=== PATIENT | female | born 1970 | race African-American/Black ===

== ENCOUNTER 2020-04-23 15:22 | Emergency (ER) | payer SELFPAY ==
[2020-04-23] MEDS ORDERED: ACETAMINOPHEN 325 MG TAB PO ONE (15:42)
--- NOTE | 2020-04-23 15:53 | Emergency Department Report ---
- General Chief Complaint: Upper Respiratory Infection Stated Complaint: COUGH/DIZZY Time Seen by Provider: 04/23/20 15:42 Source: patient Mode of arrival: Ambulatory Limitations: No Limitations - History of Present Illness Initial Comments: Language interpretation by Trudy, patient office machines sales representative/school secretary Patient is a 50-year-old female who presents emergency room with complaints of a cough that began a week ago. She has associated headache, lightheadedness, generalized body aches, subjective fever, chills. She states that she has shortness of breath and chest discomfort after frequent coughing. She denies any nausea, vomiting, diarrhea, abdominal pain. No past medical history. No allergies medications. 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 She denies any recent travel. She is a non-smoker. - Related Data Previous Rx's Medication Instructions Recorded Last Taken Type cefUROXime [Ceftin] 250 mg PO Q12H #10 tablet 12/17/17 Unknown Rx Albuterol Sulfate [Proventil Hfa] 6.7 gm IH TID PRN #1 hfa.aer.ad 04/23/20 Unknown Rx Azithromycin [Zithromax TAB] 250 mg PO QDAY 5 Days #6 tablet 04/23/20 Unknown Rx Prednisone [predniSONE 10 mg 10 mg PO .TAPER #1 tab.ds.pk 04/23/20 Unknown Rx (6-Day Pack, 21 Tabs)] methOCARBAMOL [Robaxin TAB] 500 mg PO BID PRN #14 tab 04/23/20 Unknown Rx Allergies Allergy/AdvReac Type Severity Reaction Status Date / Time No Known Allergies Allergy Verified 04/23/20 15:24 ED Review of Systems ROS: Stated complaint: COUGH/DIZZY Other details as noted in HPI Comment: All other systems reviewed and negative ED Past Medical Hx - Past Medical History Previous Medical History?: No - Surgical History Past Surgical History?: No - Social History Smoking Status: Never Smoker Substance Use Type: None - Medications Home Medications: Home Medications Medication Instructions Recorded Confirmed Last Taken Type cefUROXime [Ceftin] 250 mg PO Q12H #10 tablet 12/17/17 Unknown Rx Albuterol Sulfate [Proventil Hfa] 6.7 gm IH TID PRN #1 hfa.aer.ad 04/23/20 Unknown Rx Azithromycin [Zithromax TAB] 250 mg PO QDAY 5 Days #6 tablet 04/23/20 Unknown Rx Prednisone [predniSONE 10 mg 10 mg PO .TAPER #1 tab.ds.pk 04/23/20 Unknown Rx (6-Day Pack, 21 Tabs)] methOCARBAMOL [Robaxin TAB] 500 mg PO BID PRN #14 tab 04/23/20 Unknown Rx ED Physical Exam - General Limitations: Language Barrier General appearance: alert, in no apparent distress - Head Head exam: Present: atraumatic, normocephalic - Eye Eye exam: Present: normal appearance - ENT ENT exam: Present: mucous membranes moist - Respiratory Respiratory exam: Present: normal lung sounds bilaterally. Absent: respiratory distress, wheezes, rales, rhonchi, stridor, chest wall tenderness, accessory muscle use, decreased breath sounds, prolonged expiratory - Cardiovascular Cardiovascular Exam: Present: regular rate, normal rhythm, normal heart sounds. Absent: systolic murmur, diastolic murmur, rubs, gallop - Neurological Exam Neurological exam: Present: alert, oriented X3 - Psychiatric Psychiatric exam: Present: normal affect, normal mood - Skin Skin exam: Present: warm, dry, intact ED Course Vital Signs 04/23/20 15:31 Temperature 99.7 F H Pulse Rate 99 H Respiratory 23 Rate Blood Pressure 121/83 O2 Sat by Pulse 95 Oximetry ED Medical Decision Making - Lab Data Result diagrams: 04/23/20 15:45 04/23/20 15:45 Lab Results 04/23/20 04/23/20 Range/Units 15:45 15:45 WBC 6.6 (4.5-11.0) K/mm3 RBC 5.10 H (3.65-5.03) M/mm3 Hgb 15.7 H (10.1-14.3) gm/dl Hct 46.4 H (30.3-42.9) % MCV 91 (79-97) fl MCH 31 (28-32) pg MCHC 34 (30-34) % RDW 13.4 (13.2-15.2) % Plt Count 227 (140-440) K/mm3 Lymph % (Auto) 20.2 (13.4-35.0) % Graves % (Auto) 8.3 H (0.0-7.3) % Eos % (Auto) 0.2 (0.0-4.3) % Baso % (Auto) 0.3 (0.0-1.8) % Lymph # (Auto) 1.3 (1.2-5.4) K/mm3 Graves # (Auto) 0.6 (0.0-0.8) K/mm3 Eos # (Auto) 0.0 (0.0-0.4) K/mm3 Baso # (Auto) 0.0 (0.0-0.1) K/mm3 Seg Neutrophils % 71.0 H (40.0-70.0) % Seg Neutrophils # 4.7 (1.8-7.7) K/mm3 Sodium 136 L (137-145) mmol/L Potassium 3.9 (3.6-5.0) mmol/L Chloride 98.7 (98-107) mmol/L Carbon Dioxide 27 (22-30) mmol/L Anion Gap 14 mmol/L BUN 16 (7-17) mg/dL Creatinine 0.9 (0.6-1.2) mg/dL Estimated GFR > 60 ml/min BUN/Creatinine Ratio 18 % Glucose 112 H (65-100) mg/dL Calcium 8.4 (8.4-10.2) mg/dL Total Bilirubin 1.00 (0.1-1.2) mg/dL AST 38 (5-40) units/L ALT 46 (7-56) units/L Alkaline Phosphatase 99 (35-129) units/L Total Protein 7.2 (6.3-8.2) g/dL Albumin 4.0 (3.9-5) g/dL Albumin/Globulin Ratio 1.3 % - Radiology Data Radiology results: report reviewed Ordering Physician: ARCHIE DODD Date of Service: 04/23/20 Procedure(s): XR chest routine 2V Accession Number(s): [id number] cc: ARCHIE DODD Fluoro Time In Minutes: CHEST 2 VIEWS INDICATION / CLINICAL INFORMATION: cough, SOB. COMPARISON: None available. FINDINGS: SUPPORT DEVICES: None. HEART / MEDIASTINUM: No significant abnormality. LUNGS / PLEURA: Diffuse patchy pulmonary opacities are seen in bilateral lungs No pneumothorax. ADDITIONAL FINDINGS: No significant additional findings. IMPRESSION: 1. Diffuse patchy pulmonary opacities are seen in bilateral lungs. Signer Name: Dejuan Rosario MD Signed: 04/23/2020 4:11 PM Workstation Name: [id number] Transcribed By: TONIA Dictated By: GABRIEL ROSARIO MD Electronically Authenticated By: GABRIEL ROSARIO MD Signed Date/Time: 04/23/201610 DD/ 10 TD/TT: - Medical Decision Making Language interpretation by Trudy, patient office machines sales representative/school secretary Patient is a 50-year-old female who presents emergency room with complaints of a cough that began a week ago. She has associated headache, lightheadedness, generalized body aches, subjective fever, chills. She states that she has shortness of breath and chest discomfort after frequent coughing. She denies any nausea, vomiting, diarrhea, abdominal pain. No past medical history. No allergies medications. 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 She denies any recent travel. She is a non-smoker. Vitals with a low-grade fever, otherwise stable. No hypoxia, no tachycardia, no hypotension. Breath sounds are clear on exam, no wheezing, no rales, no rhonchi. Labs are stable. Chest x-ray:1. Diffuse patchy pulmonary opacities are seen in bilateral lungs. This is likely representing COVID-19 pneumonia, discussed all findings with patient and answered questions. Discussed the importance of self quarantine. Discussed strict return precautions. Discussed outpatient testing. Patient does not meet hospital criteria for COVID-19 admission or for COVID-19 hospital testing. Patient given prescription for azithromycin, prednisone, Robaxin, albuterol inhaler. Advised patient Please take medication as prescribed. Please increase your fluid intake over the next several days. May t marcy Tylenol as needed for fever or body aches. May take yfrm-[id number] cold symptom relief medication such as Mucinex or TheraFlu. Follow-up with a primary care doctor for reexamination. Return to emergency room immediately for any new or worsening symptoms including but not limited to difficulty breathing, shortness of breath, severe chest pain, unable to tolerate by mouth intake, etc. Please self quarantine for 2 weeks from the onset of your symptoms. Please do not go out in public. If you are around others at home please wear a mask. If you need to cough or sneeze please do so in a napkin and immediately throw it away and immediately wash your hands. Wash your hands frequently. Wipe everything down. Recommend for you to get COVID-19 testing, may have this done at primary care doctor, health department, [facility], etc. Critical care attestation.: If time is entered above; I have spent that time in minutes in the direct care of this critically ill patient, excluding procedure time. ED Disposition Clinical Impression: Suspected COVID-19 virus infection Pneumonia Qualifiers: Pneumonia type: due to unspecified organism Laterality: bilateral Lung location: unspecified part of lung Qualified Code(s): J18.9 - Pneumonia, unspecified organism Disposition: DC- TO HOME OR SELFCARE Is pt being admited?: No Does the pt Need Aspirin: No Condition: Stable Instructions: COVID-19, COVID-19: How to Protect Yourself and Others - CDC, Prevent the Spread of COVID-19 if You Are Sick - CDC, Bacterial Pneumonia (ED) Additional Instructions: Please take medication as prescribed. Please increase your fluid intake over the next several days. May take Tylenol as needed for fever or body aches. May take hkkk-tzd-ykfohja cold symptom relief medication such as Mucinex or TheraFlu. Follow-up with a primary care doctor for reexamination. Return to emergency room immediately for any new or worsening symptoms including but not limited to difficulty breathing, shortness of breath, severe chest pain, unable to tolerate by mouth intake, etc. Please self quarantine for 2 weeks from the onset of your symptoms. Please do not go out in public. If you are around others at home please wear a mask. If you need to cough or sneeze please do so in a napkin and immediately throw it away and immediately wash your hands. Wash your hands frequently. Wipe everything down. Recommend for you to get COVID-19 testing, may have this done at primary care doctor, health department, [facility], etc. [place] los medicamentos segn lo prescrito. Aumente la ingesta de lquidos thea los prximos martinez. Puede samuel Tylenol segn sea necesario para la fiebre o los johnny corporales. Puede samuel medicamentos de venta andrew para aliviar los sntomas del resfriado, jhonny Mucinex o TheraFlu. Lelo un seguimiento con un mdico de atencin primaria para un nuevo examen. Regrese a la yayo de emergencias de inmediato por cualquier sntoma nuevo o que empeore, incluidos, entre otros, dificultad para respirar, falta de aliento, dolor de pecho chase, incapacidad para tolerar la ingesta oral, etc. Por favor, pngase en cuarentena thea 2 semanas desde el inicio de lala sntomas. Por favor, no salga en pblico. Si est con otras personas en casa, use jacquie mscara. Si necesita toser o estornudar, hgalo en jacquie servilleta, deschela inmediatamente y lvese las jase inmediatamente. Lvese las jase con frecuencia. Limpia todo. Recomendarle hacerse la prueba de COVID-19, puede hacerlo en el mdico de atencin primaria, el departamento de [facility], [facility], etc. Prescriptions: Prednisone [predniSONE 10 mg (6-Day Pack, 21 Tabs)] 10 mg PO .TAPER #1 tab.ds.pk Albuterol Sulfate [Proventil Hfa] 6.7 gm IH TID PRN #1 hfa.aer.ad PRN Reason: shortness of breath methOCARBAMOL [Robaxin TAB] 500 mg PO BID PRN #14 tab PRN Reason: pain Azithromycin [Zithromax TAB] 250 mg PO QDAY 5 Days #6 tablet Referrals: NORBERTO ASTORGA MD [Staff Physician] - 3-5 Days [facility] [Provider Group] - 3-5 Days Time of Disposition: 16:32 Print Language: CZECH
--- NOTE | 2020-04-23 16:15 | XRay Report ---
CHEST 2 VIEWS INDICATION / CLINICAL INFORMATION: cough, SOB. COMPARISON: None available. FINDINGS: SUPPORT DEVICES: None. HEART / MEDIASTINUM: No significant abnormality. LUNGS / PLEURA: Diffuse patchy pulmonary opacities are seen in bilateral lungs No pneumothorax. ADDITIONAL FINDINGS: No significant additional findings. IMPRESSION: 1. Diffuse patchy pulmonary opacities are seen in bilateral lungs. Signer Name: Dejuan Rosario MD Signed: 04/23/2020 4:11 PM Workstation Name: [id number]
[2020-04-23 16:16] LABS: Alanine Aminotransferase 46 units/L (7-56); BUN/Creatinine Ratio 18; Blood Urea Nitrogen 16 mg/dL (7-17); Calcium 8.4 mg/dL (8.4-10.2); Hemolysis Index 6
[2020-04-23 16:28] LABS: Basophils % (Auto) 0.3 % (0.0-1.8); Eosinophils % (Auto) 0.2 % (0.0-4.3); Hematocrit 46.4 % (30.3-42.9); Hemoglobin 15.7 gm/dl (10.1-14.3); Lymphocytes # (Auto) 1.3 K/mm3 (1.2-5.4); Lymphocytes % (Auto) 20.2 % (13.4-35.0); Mean Corpuscular HGB Conc 34 % (30-34); Mean Corpuscular Volume 91 fl (79-97); Monocytes # (Auto) 0.6 K/mm3 (0.0-0.8); Monocytes % (Auto) 8.3 % (0.0-7.3); Platelet Count 227 K/mm3 (140-440); Red Cell Distribution Width 13.4 % (13.2-15.2)
[2020-04-23 17:37] VITALS: BP 110/10
== END 2020-04-23 17:37 | disposition home or self-care (01) ==
LOC: ED 15:22
DX: J18.9 Pneumonia, unspecified organism (principal); Z20.822 Contact with and (suspected) exposure to COVID-19; Z79.899 Other long term (current) drug therapy
CPT/HCPCS: 36415; 71046; 80053; 85025; 99283